=== PATIENT | male | born 1995 | race Caucasian/White ===

== ENCOUNTER 2021-05-11 21:41 | Emergency (ER) | payer BC ==
[~2021-05-11] VITALS: Ht 193 cm; Wt 128.4 kg
== END 2021-05-11 23:01 | disposition home or self-care (01) ==
LOC: ED 21:41
DX: J45.909 Unspecified asthma, uncomplicated (principal); Z88.8 Allergy status to other drugs, medicaments and biological substances
CPT/HCPCS: 94640; 99284